=== PATIENT | male | born 1970 | race Caucasian/White ===

== ENCOUNTER 2021-01-07 13:16 | Emergency (ER) | payer MEDICARE, SELFPAY ==
[2021-01-07 13:23] VITALS: BP 156/103; PULSE 94; RESP 14; TEMP 36.3; O2SAT 98
--- NOTE | 2021-01-07 13:40 | ED.PSYCH ---
HPI - Psych General Chief Complaint: Psychiatric Symptoms Stated Complaint: mental health evaluation Time Seen by Provider: 01/07/21 13:26 Source: patient Mode of arrival: ambulatory Limitations: no limitations History of Present Illness HPI Narrative: Patient is a 50-year-old male complaining of suicidal thoughts with a plan. Patient states that his suicidal thoughts has been ongoing for the past 10 years due to multiple issues such as health I am in chronic pain family, my is addicted to narcotics , and social I'm afraid to go out . Pt states that today he has a plan to overdose on insulin so his family doctor took him off of his insulin and just take Metformin for now. Patient denies any homicidal ideation. Patient denies any auditory visualizations. Related Data Home Medications Medication Instructions Recorded Confirmed atorvastatin 01/07/21 buspirone mg 01/07/21 01/07/21 duloxetine mg PO 01/07/21 empagliflozin [Jardiance] mg 01/07/21 gabapentin 01/07/21 lithium carbonate mg PO 01/07/21 metformin mg PO 01/07/21 trazodone 01/07/21 Allergies Allergy/AdvReac Type Severity Reaction Status Date / Time No Known Allergies Allergy Verified 01/07/21 20:10 Review of Systems Review of Systems: All systems reviewed & are unremarkable except as noted in HPI and below Constitutional: Constitutional: Denies body ache(s), Denies chills, Denies excessive sweating, Denies fatigue, Denies fever(s), Denies headache(s), Denies lethargy, Denies malaise, Denies weakness and Denies weight loss Eyes: Eyes: Denies blurry vision, Denies change in vision and Denies loss of vision ENT: Denies dizziness, Denies ear discharge, Denies headache(s), Denies lip swelling, Denies epistaxis, Denies nasal congestion, Denies neck pain, Denies throat swelling and Denies tongue swelling Cardiovascular: Cardiovascular: Denies chest pain, Denies chest pain at rest, Denies chest pain with activity, Denies diaphoresis, Denies rapid heart rate, Denies edema, Denies irregular heart rhythm, Denies lightheadedness, Denies palpitations, Denies dyspnea and Denies dyspnea on exertion Respiratory: Respiratory: Denies chest congestion, Denies cough, Denies hemoptysis, Denies dyspnea and Denies dyspnea on exertion Gastrointestinal: Gastrointestinal: Denies abdominal pain, Denies melena, Denies hematochezia, Denies diarrhea, Denies nausea, Denies vomiting and Denies hematemesis Musculoskeletal: Musculoskeletal: Denies abnormal gait, Denies deformity, Denies joint swelling, Denies limited range of motion, Denies neck pain and Denies numbness Neurologic: Denies Abnormal speech present, Denies abnormal gait, Denies confusion, Denies dizziness, Denies headache(s), Denies focal weakness, Denies loss of vision, Denies numbness, Denies Other visual disturbances, Denies Sensory deficit (Neuro) and Denies weakness Psychiatric: Psychiatric: Denies confusion, Denies auditory hallucinations and Denies homicidal ideation Endocrine: Endocrine: Denies cold intolerance, Denies excessive sweating, Denies fatigue, Denies heat intolerance and Denies palpitations Hematologic/Lymphatic: Hematologic/Lymphatic: Denies easy bleeding and Denies easy bruising Allergic/Immunologic: Allergic/Immunologic: Denies lip swelling, Denies throat swelling and Denies tongue swelling [facility] Family History Family History (Updated 09/17/15 @ 23:19 by DOCTOR UNKNOWN) Mother Hypertension Family history of diabetes mellitus in first degree relative Father Family history of diabetes mellitus in first degree relative Sibling Family history of diabetes mellitus in first degree relative Social History Social History Smoking status: Heavy tobacco smoker Alcohol intake: current Substance use type: marijuana Comments Past medical history: Insulin-dependent diabetes mellitus Social history: Positive for smoker, EtOH use, no drug use Exam Const: General: cooperative, hea
[2021-01-07 13:55] LABS: Basophils Absolute Auto 0.1 K/mm3 (0.0-0.1); Basophils Percent Auto 0.5 % (0.2-1.2); Eosinophils Absolute Auto 0.1 K/mm3 (0-0.3); Hematocrit 52.9 % (42.0-52.0); Hemoglobin 18.6 g/dL (14.0-18.0); Immature Granulocyte Absolute 0.07 K/mm3 (0.00-0.031); Immature Granulocyte Percent A 0.5 % (0-0.5); Lymphocytes Absolute Auto 4.22 K/mm3 (0.9-3.2); Lymphocytes Percent Auto 29.8 % (18.3-44.2); Mean Corpuscular HGB Conc 35.2 g/dl (32-36); Mean Corpuscular Hemoglobin 30.4 pg (26-34); Mean Corpuscular Volume 86.4 fl (80-100); Monocytes Absolute Auto 0.7 K/mm3 (0.1-0.6); Monocytes Percent Auto 4.9 % (2.6-8.5); Neutrophils Percent Auto 63.3 % (45.5-73.1); Platelet Count Result 230 k/mm3 (150-375); Red Blood Count 6.12 M/mm3 (4.6-6.20); Red Cell Distribution Width 13.3 % (11.5-14.5); White Blood Count 14.2 K/mm3 (4.5-10.0)
[2021-01-07 14:35] LABS: Amphetamine Screen Urine Negative (Negative); Barbiturate Screen Urine Negative (Negative); Benzodiazepines Screen Urine Positive (Negative); Cannabinoid Screen Urine Positive (Negative); Cocaine Screen Urine Negative (Negative); Methadone Screen Urine Negative (Negative); Opiate Screen Urine Negative (Negative); Phencyclidine Screen Urine Negative (Negative)
[2021-01-07 17:16] LABS: Acetaminophen < 10 ug/mL (10-30); Ethanol < 10 mg/dL (<10); Salicylate < 1.0 mg/dL (2-20)
[2021-01-07 17:17] LABS: Alanine Aminotransferase 23 U/L (4-50); Albumin Level 4.6 g/dL (3.5-5.1); Alkaline Phosphatase 99 U/L (38-126); Anion Gap 10 mmol/L (8-16); Aspartate Amino Transferase 27 U/L (17-59); Bilirubin,Total 0.4 mg/dL (0.2-1.3); Blood Urea Nitrogen 15 mg/dL (9-20); Calcium 9.9 mg/dL (8.4-10.2); Carbon Dioxide 24 mmol/L (22-30); Chloride 102 mmol/L (98-107); Estimated CRCL calculation 121 ml/min; Estimated Glomerular Filt Rate > 60; Glucose 337 mg/dL (65-110); Potassium 4.3 mmol/L (3.4-5.0); Sodium 136 mmol/L (137-145)
[2021-01-07 17:47] LABS: Thyroid Stimulating Hormone 0.648 uIU/mL (0.465-4.680)
[2021-01-07] MEDS: HYDROcodone/acetaminophen (*CRX) 5-325 MG TABLET 1 TAB PO (17:48)
[2021-01-07 19:16] VITALS: BP 158/118; PULSE 112; RESP 18; O2SAT 98
--- NOTE | 2021-01-07 19:16 | PC.NURSE ---
No risk per Llewellyn score, sitter still required as patient states, I have no new thoughts of wanting to kill myself but I know I would kill myself if I left here.
[2021-01-07 19:17] LABS: Glucose Point of Care 242 mg/dl (65-105)
[2021-01-07] MEDS: INSULIN HUMAN REGULAR (*BKC) 100 UNITS/ML 10 UNITS SUB-Q (20:08)
[2021-01-07 20:17] LABS: Glucose Point of Care 246 mg/dl (65-105)
--- NOTE | 2021-01-07 20:28 | PC.NURSE ---
Crisis called by this RN to evaluate pt, nobody available to take call. Will call again.
--- NOTE | 2021-01-07 20:42 | PC.NURSE ---
Pt being evaluated by Crisis at this time.
[2021-01-07] MEDS: LORazepam (*CRX) 1 MG TABLET PO (21:21)
--- NOTE | 2021-01-07 21:24 | PC.NURSE ---
Safety plan in place after crisis evaluation, sitter removed, pt removed from green scrubs, belongings returned. notified by phone per pt request.
[2021-01-07 21:25] LABS: Glucose Point of Care 241 mg/dl (65-105)
[2021-01-07 23:02] VITALS: BP 154/84; PULSE 96; RESP 18; O2SAT 99
== END 2021-01-07 23:00 | disposition home or self-care (01) ==
PROVIDERS: Emergency Provider Emergency Medicine; PCP Internal Medicine
DX: R45.851 Suicidal ideations (principal); F33.9 Major depressive disorder, recurrent, unspecified; E11.65 Type 2 diabetes mellitus with hyperglycemia; F17.200 Nicotine dependence, unspecified, uncomplicated; Z79.84 Long term (current) use of oral hypoglycemic drugs; Z79.899 Other long term (current) drug therapy
CPT/HCPCS: 36415; 80053; 80307; 82948; 84443; 85025; 99284; A9270; J1815